=== PATIENT | female | born 1945 | race American Indian/Alaskan Native ===

== ENCOUNTER 2017-11-01 12:02 | Day surgery (SDC) | payer OTHER ==
[2015-03-04 11:24] VITALS: BMI 25.8
[2017-11-01] MEDS ORDERED: Lactated Ringer's 1,000 ML IV ONE (12:07)
[2017-11-01] MEDS ORDERED: Propofol 10 mg/ml Inj (20 ML) ONE (12:23)
[2017-11-01] MEDS ORDERED: Lidocaine PF 2% (5 ml) Inj (For Cardiac Arrhy) IV ONE (12:23)
[2017-11-01 12:55] VITALS: TEMP 96.8
[2017-11-01 13:18] VITALS: BP 128/72; PULSE 63; RESP 17; O2SAT 97
== END 2017-11-01 13:22 | disposition home or self-care (01) ==
LOC: H.ENDO 12:02
PROVIDERS: ATTEND Internal Medicine Gastroenterology
DX: K30 Functional dyspepsia (principal); E78.5 Hyperlipidemia, unspecified; E11.9 Type 2 diabetes mellitus without complications; I10 Essential (primary) hypertension; K31.7 Polyp of stomach and duodenum
CPT/HCPCS: 43239; 82948; 88305; J2001; J2704; J7120